=== PATIENT | female | born 1995 | race Caucasian/White ===

== ENCOUNTER 2017-12-17 22:06 | Emergency (ER) | payer OTHER ==
[~2017-12-17] VITALS: Ht 162.6 cm; Wt 53.2 kg
[2017-12-17] MEDS ORDERED: LIDOCAINE-MPF 2% ,5ML ONE (22:20)
[2017-12-17] MEDS ORDERED: LIDOCAINE 2%, 20ML SQ ONE (22:30)
== END 2017-12-18 00:01 | disposition home or self-care (01) ==
LOC: ED 22:23
DX: S91.204A Unspecified open wound of right lesser toe(s) with damage to nail, initial encounter (principal); Y08.89XA Assault by other specified means, initial encounter; Y93.89 Activity, other specified; Y92.89 Other specified places as the place of occurrence of the external cause; Y99.8 Other external cause status
CPT/HCPCS: 11760; 99284